=== PATIENT | male | born 1960 | race Caucasian/White ===

== ENCOUNTER 2019-05-24 02:30 | Inpatient (IN) | payer MEDICARE, MEDICAID ==
--- NOTE | 2019-05-24 03:05 | ER Document Report ---
ED Cardiac - General Stated Complaint: SHORTNESS OF BREATH Time Seen by Provider: 05/24/19 02:50 Primary Care Provider: PASCUAL MCCORMACK DO [NO LOCAL MD] - Follow up as needed Notes: 59-year-old male brought in emergency tract by EMS for tachycardia and shortness of breath. Patient called EMS when he was having shortness of breath. EMS arrived and found patient with a heart rate in the 200s with what appeared to be a narrow complex rhythm. They did have an IV and administered adenosine but that did not work. Patient began to have hypotension so the decision was made to do electrocardioversion. Patient received 2 electrical shocks but still no decrease in heart rate. The IV was subsequently lost. Patient was seen immediately on arrival. Patient was alert and in no acute distress. Heart rate of 210. Immediate IV access was obtained. - HPI Patient complains to provider of: Palpitations, Shortness of breath Was the onset of pain: Sudden Is the pain a: New problem Quality of pain: None Severity now: Severe Severity at worst: Severe Pain level currently: Denies Associated symptoms: Shortness of breath, Weakness - Related Data Allergies/Adverse Reactions: No Known Allergies Allergy (Verified 06/28/13 17:52) Past Medical History - General Information source: Patient - Social History Smoking Status: Current Every Day Smoker Cigarette use (# per day): Yes Frequency of alcohol use: None Drug Abuse: None Family History: Reviewed & Not Pertinent - Past Medical History Cardiac Medical History: Reports: Hx Congestive Heart Failure, Hx Hypertension Pulmonary Medical History: Reports: Hx COPD - Immunizations Hx Diphtheria, Pertussis, Tetanus Vaccination: No Review of Systems - Review of Systems Notes: Constitutional: denies: Chills, Diaphoresis, Fever, Malaise, Weakness EENT: denies: Eye discharge, Blurred vision, Tearing, Double vision, Nose congestion, Nose discharge, Throat swelling, Mouth pain Cardiovascular: denies: Palpitations, Heart racing, Orthopnea, +Dyspnea, -Chest pain Respiratory: denies: Cough, Hurts to breathe, Wheezing, +Shortness of breath Gastrointestinal: denies: Abdominal pain, Diarrhea, Nausea, Vomiting, Black stools, bright red blood in stool Genitourinary: denies: Burning, Dysuria, Discharge, Frequency, Flank pain, Hematuria Musculoskeletal: denies: Joint pain, Joint swelling, Muscle pain, Muscle stiffness, back pain Hematologic/Lymphatic: denies: Anemia, Easy bleeding, Easy bruising, Blood clots Neurological/Psychological: denies: Confusion, Dementia, Depression, Loss of consciousness Skin: No lesions, no masses, no skin breakdown, no abscesses Physical Exam - Vital signs Vitals: Resp Pulse Ox 27 H 94 05/24/19 02:34 05/24/19 02:34 Interpretation: Tachycardic, Tachypneic - General General appearance: Appears well, Alert - HEENT Head: Normocephalic, Atraumatic Eyes: Normal Pupils: PERRL - Respiratory Respiratory status: No respiratory distress Chest status: Nontender Breath sounds: Normal Chest palpation: Normal - Cardiovascular Rhythm: Tachycardia Heart sounds: Normal auscultation Murmur: No - Abdominal Inspection: Normal Distension: No distension Bowel sounds: Normal Tenderness: Nontender Organomegaly: No organomegaly - Back Back: Normal, Nontender - Extremities General upper extremity: Normal inspection, Nontender, Normal color, Normal ROM, Normal temperature General lower extremity: Normal inspection, Nontender, Edema - Moderate amount of edema bilateral lower extremities with venous stasis present and skin changes consistent with chronic venous stasis., Normal color, Normal ROM, Normal temperature. No: Vidal's sign - Neurological Neuro grossly intact: Yes Cognition: Normal Orientation: AAOx4 Breanne Coma Scale Eye Opening: Spontaneous Breanne Coma Scale Verbal: Oriented Hampton Coma Scale Motor: Obeys Commands Hampton Coma Scale Total: 15 Speech: Normal Motor strength normal: LUE, RUE, LLE, RLE Sensory: Normal - Psychological Associated symptoms: Normal affect, Normal mood - Skin Skin Temperature: Warm Skin Moisture: Dry Skin Color: Normal, Other - Venous stasis Course - Re-evaluation Re-evalutation: 05/24/19 04:05 Patient was cardioverted with Cardizem. Heart rate still elevated. Maxed out on the Cardizem so we will try some digoxin to lower the heart rate. Patient will need to be admitted. Consulted hospitalist, Dr. Holloway who will admit at this time. 05/24/19 04:05 Laboratory 05/24/19 05/24/19 05/24/19 02:54 03:00 03:00 WBC 10.8 H RBC 5.52 Hgb 16.3 Hct 48.1 MCV 87 MCH 29.5 MCHC 33.9 RDW 15.0 H Plt Count 283 Seg Neutrophils % 62.6 Lymphocytes % 28.1 Monocytes % 7.2 Eosinophils % 1.0 Basophils % 1.1 Absolute Neutrophils 6.8 Absolute Lymphocytes 3.0 Absolute Monocytes 0.8 Absolute Eosinophils 0.1 Absolute Basophils 0.1 Sodium 135.5 L Potassium 4.9 Chloride 101 Carbon Dioxide 21 L Anion Gap 14 BUN 22 H Creatinine 0.70 Est GFR ( Amer) > 60 Est GFR (Non-Af Amer) > 60 Glucose 227 H POC Glucose 198 H Calcium 9.9 Total Bilirubin 0.7 Direct Bilirubin 0.5 H Neonat Total Bilirubin Not Reportable Neonat Direct Bilirubin Not Reportable Neonat Indirect Bili Not Reportable AST 17 ALT 16 L Alkaline Phosphatase 129 H Creatine Kinase 41 L CK-MB (CK-2) Troponin I NT-Pro-B Natriuret Pep Total Protein 7.6 Albumin 4.0 05/24/19 03:00 WBC RBC Hgb Hct MCV MCH MCHC RDW Plt Count Seg Neutrophils % Lymphocytes % Monocytes % Eosinophils % Basophils % Absolute Neutrophils Absolute Lymphocytes Absolute Monocytes Absolute Eosinophils Absolute Basophils Sodium Potassium Chloride Carbon Dioxide Anion Gap BUN Creatinine Est GFR ( Amer) Est GFR (Non-Af Amer) Glucose POC Glucose Calcium Total Bilirubin Direct Bilirubin Neonat Total Bilirubin Neonat Direct Bilirubin Neonat Indirect Bili AST ALT Alkaline Phosphatase Creatine Kinase CK-MB (CK-2) 1.03 Troponin I < 0.012 NT-Pro-B Natriuret Pep 2100 H Total Protein Albumin - Vital Signs Vital signs: Temp Pulse Resp BP Pulse Ox 98.0 F 19 141/81 H 94 05/24/19 02:56 05/24/19 03:00 05/24/19 02:42 05/24/19 03:33 - Laboratory Result Diagrams: 05/24/19 03:00 05/24/19 03:00 Laboratory results interpreted by me: 05/24/19 05/24/19 05/24/19 02:54 03:00 03:00 WBC 10.8 H RDW 15.0 H Sodium 135.5 L Carbon Dioxide 21 L BUN 22 H Glucose 227 H POC Glucose 198 H Direct Bilirubin 0.5 H ALT 16 L Alkaline Phosphatase 129 H Creatine Kinase 41 L NT-Pro-B Natriuret Pep 05/24/19 03:00 WBC RDW Sodium Carbon Dioxide BUN Glucose POC Glucose Direct Bilirubin ALT Alkaline Phosphatase Creatine Kinase NT-Pro-B Natriuret Pep 2100 H Critical Care Note - Critical Care Note Total time excluding time spent on procedures (mins): 35 Comments: Extreme tachycardia, pushing of medications, bedside assessment, Discharge - Discharge Clinical Impression: Atrial fibrillation with rapid ventricular response Condition: Fair Disposition: ADMITTED INPATIENT Admitting Provider: Jewel (Hospitalist) Unit Admitted: IMCU Referrals: PASCUAL MCCORMACK DO [NO LOCAL MD] - Follow up as needed
[2019-05-24] MEDS ORDERED: ASPIRIN 81 MG TABLET, CHEWABLE PO ONE (03:12)
[2019-05-24] MEDS ORDERED: DILTIAZEM HCL INJ 25 MG/5 ML VIAL IV ONE (03:14)
[2019-05-24] MEDS ORDERED: DILTIAZEM HCL/D5W 125 MG/125 ML RTUINJ IV PRN ×2 (03:14→08:12)
[2019-05-24 03:34] LABS: BLOOD UREA NITROGEN 22 mg/dL (7-20); CALCIUM 9.9 mg/dL (8.4-10.2); CARBON DIOXIDE 21 mmol/L (22-30); CHLORIDE 101 mmol/L (98-107); GLUCOSE 227 mg/dL (75-110); POTASSIUM 4.9 mmol/L (3.6-5.0); SODIUM 135.5 mmol/L (137-145)
[2019-05-24 03:35] LABS: ALANINE AMINOTRANSFERASE 16 U/L (21-72); ALKALINE PHOSPHATASE 129 U/L (38-126); ANION GAP 14 (5-19); ASPARTATE AMINO TRANSFERASE 17 U/L (17-59); BILIRUBIN,DIRECT 0.5 mg/dL (0.0-0.4); BILIRUBIN,TOTAL 0.7 mg/dL (0.2-1.3); CREATINE KINASE 41 U/L (55-170); TOTAL PROTEIN 7.6 g/dL (6.3-8.2)
[2019-05-24 03:47] LABS: CREATINE KINASE MB 1.03 ng/mL (<4.55); NT PRO BNP 2100 pg/mL (5-900); TROPONIN I < 0.012 ng/mL
[2019-05-24 03:48] LABS: ABSOLUTE BASOPHILS # (AUTO) 0.1 10^3/uL (0.0-0.2); ABSOLUTE EOSINOPHILS # (AUTO) 0.1 10^3/uL (0.0-0.6); ABSOLUTE MONOCYTES (AUTO) 0.8 10^3/uL (0.1-1.4); ABSOLUTE NEUT (AUTO) 6.8 10^3/uL (1.7-8.2); BASOPHILS % (AUTO) 1.1 % (0-2); HEMATOCRIT 48.1 % (37.9-51.0); HEMOGLOBIN 16.3 g/dL (13.5-17.0); LYMPHOCYTES % (AUTO) 28.1 % (13-45); MEAN CORPUSCULAR HEMOGLOBIN 29.5 pg (27.0-33.4); MEAN CORPUSCULAR HGB CONC 33.9 g/dL (32.0-36.0); MEAN CORPUSCULAR VOLUME 87 fl (80-97); MONOCYTES % (AUTO) 7.2 % (3-13); PLATELET COUNT 283 10^3/uL (150-450); RED BLOOD COUNT 5.52 10^6/uL (4.35-5.55); SEGMENTED NEUTROPHILS % (AUTO) 62.6 % (42-78); TOTAL CELLS COUNTED % (AUTO) 100 %; WHITE BLOOD COUNT 10.8 10^3/uL (4.0-10.5)
[2019-05-24] MEDS ORDERED: DIGOXIN INJ 0.5 MG/2 ML AMPULE IV ONE ×2 (04:02→16:09)
--- NOTE | 2019-05-24 04:23 | RADIOLOGY REPORT (SQ) ---
CLINICAL HISTORY: sob COMPARISON: None. TECHNIQUE: XR CHEST 1 VIEW 05/24/2019 3:13 AM CDT FINDINGS: Cardiac silhouette is normal in size. Lungs are clear without consolidation, atelectasis, mass or edema. There is no pleural effusion. There is no pneumothorax. There are no acute osseous findings. IMPRESSION: Clear lungs.
[2019-05-24] MEDS ORDERED: METOPROLOL TARTRATE PF/INJ 5 MG/5 ML SDV IV PRN (08:09)
[2019-05-24] MEDS ORDERED: DEXTROSE 50%-WATER 25 GM/50 ML DISP.SYRIN IV PRN ×2 (08:17)
[2019-05-24] MEDS ORDERED: GLUCAGON,HUMAN RECOMB 1 MG INJ IM PRN (08:17)
[2019-05-24] MEDS ORDERED: DEXTROSE 40% GEL 15 GM TUBE PO PRN ×2 (08:17)
[2019-05-24] MEDS ORDERED: MAG HYDROX/AL HYDROX/SIMETH SUSP 30 ML UDCUP PO PRN (08:20)
[2019-05-24] MEDS ORDERED: MAGNESIUM HYDROXIDE SUSP 30 ML UDCUP PO PRN (08:20)
[2019-05-24] MEDS ORDERED: ACETAMINOPHEN 325 MG TABLET PO PRN (08:20)
[2019-05-24] MEDS ORDERED: TEMAZEPAM 7.5 MG CAPSULE PO PRN (08:20)
[2019-05-24] MEDS ORDERED: IPRATROPIUM/ALBUTEROL 0.5-2.5 MG/3 ML AMPUL NEB PRN (08:20)
[2019-05-24] MEDS ORDERED: PROMETHAZINE HCL 25 MG TABLET PO PRN (08:20)
[2019-05-24] MEDS ORDERED: LEVALBUTEROL HCL NEB 1.25 MG/3 ML AMPUL NEB SCH (08:45)
[2019-05-24] MEDS: INSULIN REG, HUMAN 100 UNIT/ML 3 ML VIAL (PYX) SUBCUT SCH ×4 (09:19→22:30)
[2019-05-24] MEDS: FAMOTIDINE 20 MG TABLET PO SCH ×2 (09:22→22:33)
[2019-05-24] MEDS: DILTIAZEM HCL 180 MG CAPSULE.CR PO SCH (09:22)
[2019-05-24] MEDS: LOSARTAN POTASSIUM 25 MG TABLET PO SCH (09:22)
[2019-05-24] MEDS: FUROSEMIDE 40 MG TABLET PO SCH (09:22)
[2019-05-24] MEDS: NICOTINE 21 MG/24 HR PATCH.TD24 TD SCH (09:23)
[2019-05-24] MEDS ORDERED: FUROSEMIDE 20 MG TABLET PO SCH (10:00)
[2019-05-24] MEDS ORDERED: ENOXAPARIN SODIUM INJ 40 MG/0.4 ML DISP.SYRIN SUBCUT SCH (10:00)
[2019-05-24] MEDS ORDERED: METOPROLOL TARTRATE 50 MG TABLET PO SCH (10:00)
[2019-05-24 10:09] LABS: APPEARANCE,URINE CLEAR; BILIRUBIN,URINE NEGATIVE (NEGATIVE); COLOR,URINE AMBER; GLUCOSE, URINE NEGATIVE (NEGATIVE); KETONES,URINE TRACE mg/dL (NEGATIVE); LEUKOCYTE ESTERASE,URINE NEGATIVE (NEGATIVE); NITRITE,URINE NEGATIVE (NEGATIVE); PROTEIN,URINE NEGATIVE (NEGATIVE); URINE SPECIFIC GRAVITY 1.024
[2019-05-24] MEDS ORDERED: LEVALBUTEROL HCL NEB 1.25 MG/3 ML AMPUL NEB PRN (11:12)
[2019-05-24] MEDS: NYSTATIN TOPICAL POWDER 15 GM TP SCH ×2 (13:02→18:55)
[2019-05-24] MEDS: PANTOT AC/MIN OIL/PET HY-PHL OINT 50 GM TOP SCH ×2 (13:04→18:54)
--- NOTE | 2019-05-24 19:29 | ADVANCED CARE ---
- Diagnosis (1) Hypertension Diagnosis Current: Yes (2) Type 2 diabetes mellitus with obesity Diagnosis Current: Yes (3) Stasis dermatitis of both legs Diagnosis Current: Yes (4) Stasis dermatitis of right lower extremity with venous ulcer due to chronic peripheral venous hypertension Diagnosis Current: Yes (5) Stasis dermatitis of left lower extremity with venous ulcer due to chronic peripheral venous hypertension Diagnosis Current: Yes (6) COPD (chronic obstructive pulmonary disease) Diagnosis Current: Yes (7) Atrial fibrillation with rapid ventricular response Diagnosis Current: Yes Attendance: Discussion was held with the patient at the bedside Resuscitation Status: Full Code Discussion: We reviewed the decision regarding full code and DNR. I explained to the patient that at the time of an arrest we have no idea if the patient is going to survive her with the post arrest prognosis might be. I explained that his thoughts were consistent with many patients in that he would not want to be kept alive by heroic measures for an extended period but he would like attempts made at resuscitation. I took out the healthcare proxy form in the admissions packet. I showed him where he could designated decision maker since he has no children, his parents are and there are no siblings. He will review the document during this hospitalization and consider completing it. Care Planning Goals: To establish documentation and parameters regarding treatment in the event of a catastrophic illness Document(s) Completed: None at this time Time Spent: 20 minutes
--- NOTE | 2019-05-24 19:39 | PDOC H&P ---
History of Present Illness Admission Date/PCP: 05/24/19 04:24 SUSAN AKBAR DO Patient complains of: increasing SOB over the last 3-4 weeks History of Present Illness: WILL LUJAN is a 59 year old male with significant noncompliance. He has not seen a doctor in some time. He does not take any medications at this time. He reports that over the last 4 weeks he has been noticing increasing shortness of breath. Over time it took less and less exertion that resulted in significant shortness of breath with occasional lightheadedness and dizziness. He denies any chest pain or pressure. He would occasionally be diaphoretic and experience occasional mild nausea. The patient called EMS because of the worsening shortness of breath. On arrival EMS found his heart rate to be over 200. He was given adenosine with no response. Attempted synchronized cardioversion failed. In the emergency department he was given diltiazem and digoxin. He finally broke to sinus rhythm and remains on a diltiazem drip. He was referred to the hospital service for admission. Past Medical History Past Medical History: Reviewed old records. The patient does have a history of diabetes and significant noncompliance. Cardiac Medical History: Reports: Congestive Heart Failure, Hypertension Denies: Myocardial Infarction Pulmonary Medical History: Reports: Chronic Obstructive Pulmonary Disease (COPD) EENT Medical History: Denies: Ears, Nose, Throat Neurological Medical History: Denies: Hemorrhagic CVA, Ischemic CVA Endocrine Medical History: Reports: Diabetes Mellitus Type 2 Denies: Hypothyroidism Renal/ Medical History: Denies: Chronic Kidney Disease Malignancy Medical History: Reports: None GI Medical History: Reports: Gastroesophageal Reflux Disease Musculoskeltal Medical History: Denies: Arthritis, Fibromyalgia Skin Medical History: Reports: Other - Chronic lymphedema with stasis dermatitis Psychiatric Medical History: Reports: Tobacco Dependency Denies: Alcohol Dependency Traumatic Medical History: Reports: None Hematology: Reports: None Infectious Medical History: Reports: None Past Surgical History Past Surgical History: Reports: Tonsillectomy, Other - Hydrocele and gastric polyp Social History Information Source: Patient, [facility] Records Lives with: Alone Smoking Status: Current Every Day Smoker Cigars Per Day: 15 Frequency of Alcohol Use: None Hx Recreational Drug Use: Yes Drugs: Cocaine, Marijuana, Other Hx Prescription Drug Abuse: No - Advance Directive Resuscitation Status: Full Code Surrogate healthcare decision maker:: None designated at this time Family History Family History: CAD, DM, Malignancy, Other - Congestive heart failure, dementia Parental Family History Reviewed: Yes Children Family History Reviewed: NA Sibling(s) Family History Reviewed.: NA Medication/Allergy Home Medications: No Home Medications 05/24/19 Allergies/Adverse Reactions: No Known Allergies Allergy (Verified 06/28/13 17:52) Review of Systems Constitutional: PRESENT: fatigue, weakness, weight gain Eyes: ABSENT: visual disturbances Ears: ABSENT: hearing changes Nose, Mouth, and Throat: PRESENT: other - Poor dentition Cardiovascular: PRESENT: dyspnea on exertion, edema, orthropnea Respiratory: PRESENT: cough, dyspnea. ABSENT: sputum Gastrointestinal: PRESENT: constipation, diarrhea, heartburn, nausea. ABSENT: melena, vomiting Genitourinary: ABSENT: difficulty urinating, hematuria Musculoskeletal: PRESENT: back pain Integumentary: PRESENT: rash - Stasis dermatitis, wounds - Stasis ulcers. ABSENT: diaphoresis Neurological: ABSENT: abnormal speech, confusion, memory loss, numbness, tremor(s), weakness Psychiatric: ABSENT: anxiety, depression, hallucinations Endocrine: ABSENT: cold intolerance, heat intolerance, polydipsia, polyphagia, polyuria Hematologic/Lymphatic: ABSENT: easy bleeding, lymphadenopathy Allergic/Immunologic: ABSENT: seasonal rhinorrhea Physical Exam Vital Signs: Temp Pulse Resp BP Pulse Ox 98.9 F 91 20 151/99 H 100 05/24/19 04:49 05/24/19 07:00 05/24/19 06:27 05/24/19 06:27 05/24/19 06:27 Intake & Output 05/23/19 05/24/19 05/25/19 06:59 06:59 06:59 Intake Total 16 Balance 16 Weight 162 kg General appearance: PRESENT: cooperative, mild distress, morbidly obese, well-de veloped, other - Very poor hygiene Head exam: PRESENT: atraumatic, normocephalic Eye exam: PRESENT: conjunctival injection, conjunctiva pink, EOMI. ABSENT: scleral icterus Ear exam: PRESENT: normal external ear exam Mouth exam: PRESENT: dry mucosa, tongue midline Teeth exam: PRESENT: poor dentation Throat exam: ABSENT: post pharyngeal erythema, tonsillar erythema Neck exam: PRESENT: full ROM. ABSENT: carotid bruit, JVD - Very large neck. Difficult to assess., lymphadenopathy Respiratory exam: PRESENT: clear to auscultation collette - Anteriorly, decreased breath sounds - Due to body habitus, symmetrical, unlabored. ABSENT: accessory muscle use, rales, rhonchi, tachypnea, wheezes Cardiovascular exam: PRESENT: RRR, +S1, +S2. ABSENT: diastolic murmur, systolic murmur Pulses: PRESENT: normal radial pulses, normal dorsalis pedis pul GI/Abdominal exam: PRESENT: normal bowel sounds, soft, other. ABSENT: guarding - Protuberant abdomen, tenderness Rectal exam: PRESENT: deferred Gentrourinary exam: PRESENT: scrotal swelling - With slight erythema. ABSENT: indwelling catheter Extremities exam: PRESENT: pedal edema, other - Significant pigment deposition lower extremities. Chronic lymphedema with thickened skin. Bilateral leg ulcers. Musculoskeletal exam: PRESENT: other - Difficult to assess due to morbid obesit y. ABSENT: tenderness Neurological exam: PRESENT: alert, awake, oriented to person, oriented to place, oriented to time, oriented to situation, CN II-XII grossly intact. ABSENT: motor sensory deficit Psychiatric exam: PRESENT: appropriate affect, normal mood. ABSENT: agitated, anxious Focused psych exam: ABSENT: delusional, restlessness Skin exam: PRESENT: other - The patient has an ulcer on the bilateral mid calf area on each leg. Marked pigment deposition both legs. Thickened fibrotic skin changes bilaterally with keratin scaling.. ABSENT: erythema, intact, normal color Results Laboratory Results: 05/24/19 03:00 05/24/19 03:00 05/24/19 05/24/19 03:00 03:00 WBC 10.8 H RBC 5.52 Hgb 16.3 Hct 48.1 MCV 87 MCH 29.5 MCHC 33.9 RDW 15.0 H Plt Count 283 Seg Neutrophils % 62.6 Lymphocytes % 28.1 Monocytes % 7.2 Eosinophils % 1.0 Basophils % 1.1 Absolute Neutrophils 6.8 Absolute Lymphocytes 3.0 Absolute Monocytes 0.8 Absolute Eosinophils 0.1 Absolute Basophils 0.1 Sodium 135.5 L Potassium 4.9 Chloride 101 Carbon Dioxide 21 L Anion Gap 14 BUN 22 H Creatinine 0.70 Est GFR ( Amer) > 60 Est GFR (Non-Af Amer) > 60 Glucose 227 H Calcium 9.9 Total Bilirubin 0.7 AST 17 ALT 16 L Alkaline Phosphatase 129 H Total Protein 7.6 Albumin 4.0 05/24/19 05/24/19 05/24/19 03:00 03:00 07:45 Creatine Kinase 41 L CK-MB (CK-2) 1.03 Troponin I < 0.012 < 0.012 NT-Pro-B Natriuret Pep 2100 H Impressions: Chest X-Ray 05/24/19 03:13 IMPRESSION: Clear lungs. Assessment and Plan - Diagnosis (1) Atrial fibrillation with rapid ventricular response Is this a current diagnosis for this admission?: Yes Plan: 05/24/2019-when EMS arrived at patient's house his heart rate is greater than 200. Adenosine failed to convert and synchronized cardioversion was attempted x2. Unfortunately this failed. Upon arrival to the emergency department combination of diltiazem and digoxin was able to control the rate and convert him to sinus rhythm. He is currently in sinus rhythm. We will continue the diltiazem and digoxin. I will place him on therapeutic Lovenox and if we are unable to maintain sinus rhythm we will continue anticoagulation with an oral agent. (2) Hypertension Qualifiers: Hypertension type: essential hypertension Qualified Code(s): I10 - Essential (primary) hypertension Is this a current diagnosis for this admission?: Yes Plan: 05/24/2019-the patient will be on diltiazem, losartan and furosemide. These were medications he had been on in the past. We will adjust medications based on his blood pressure readings. (3) Type 2 diabetes mellitus with obesity Is this a current diagnosis for this admission?: Yes Plan: 05/24/2019-the patient reports that he may be diabetic. His glucose today is 227. In addition old records reflect diabetes. A hemoglobin A1c is ordered for tomorrow and he will be on a cardiac/controlled carbohydrate diet. For the time being fingersticks with meals and at bedtime and insulin sliding scale. (4) Stasis dermatitis of both legs Is this a current diagnosis for this admission?: Yes Plan: 05/24/2019-the patient has long-standing edema. He has developed what he calls alligator skin. He also has 2 ulcers. Will apply Aquaphor to both legs and effort to treat the keratin scaling. He will be on diuretic therapy to help reduce the edema. Long-term treatment would include compression wraps and dewayne ght loss. (5) Stasis dermatitis of right lower extremity with venous ulcer due to chronic peripheral venous hypertension Is this a current diagnosis for this admission?: Yes Plan: 05/24/2019-patient has an ulcer on the posterior lateral aspect of the right calf. We will clean daily and apply Allevyn dressings. Unfortunately ~com pression wraps are not available at this time. Leg elevation when possible. (6) Stasis dermatitis of left lower extremity with venous ulcer due to chronic peripheral venous hypertension Is this a current diagnosis for this admission?: Yes Plan: 05/24/2019-the left leg ulcer is posterior lateral on the calf as well. Same treatment plan as above. (7) COPD (chronic obstructive pulmonary disease) Qualifiers: COPD type: unspecified COPD Qualified Code(s): J44.9 - Chronic obstructive pulmonary disease, unspecified Is this a current diagnosis for this admission?: Yes Plan: 05/24/2019-the patient has underlying history of chronic obstructive pulmonary disease. It is not an acute exacerbation. We will have nebulizer treatments available if needed. Oxygen supplementation as needed also. We will try to keep saturations between 88 and 92%. - Time Time Spent with patient: 35 or more minutes Smoking Cessation Education: 3 to 10 minutes Medications reviewed and adjusted accordingly: Yes - Inpatient Certification Based on my medical assessment, after consideration of the patient's comorbidities, presenting symptoms, or acuity I expect that the services needed warrant INPATIENT care.: Yes I certify that my determination is in accordance with my understanding of Medicare's requirements for reasonable and necessary INPATIENT services [42 CFR 412.3e].: Yes Medical Necessity: Need Close Monitoring Due to Risk of Patient Decompensation, Need For Continuous Telemetry Monitoring, Need for Pain Control, Risk of Complication if Not Cared For in Hospital
[2019-05-24] MEDS: ENOXAPARIN SODIUM INJ 150 MG/1 ML DISP.SYRIN SUBCUT SCH (22:29)
[2019-05-24] MEDS: ASPIRIN 81 MG TABLET, ENT COATED PO SCH (22:30)
[2019-05-24] MEDS: DIGOXIN 0.125 MG TABLET PO SCH (22:31)
--- NOTE | 2019-05-24 22:39 | EKG REPORT ---
SEVERITY:- ABNORMAL ECG - SINUS TACHYCARDIA WITH IRREGULAR RATE [id number] RBBB AND LPFB : Confirmed by: Georgia Diane MD 24-May-2019 22:38:39
[2019-05-25 06:24] LABS: ABSOLUTE BASOPHILS # (AUTO) 0.1 10^3/uL (0.0-0.2); ABSOLUTE EOSINOPHILS # (AUTO) 0.2 10^3/uL (0.0-0.6); ABSOLUTE LYMPHOCYTES (AUTO) 1.9 10^3/uL (0.5-4.7); ABSOLUTE MONOCYTES (AUTO) 0.6 10^3/uL (0.1-1.4); ABSOLUTE NEUT (AUTO) 3.8 10^3/uL (1.7-8.2); BASOPHILS % (AUTO) 1.1 % (0-2); EOSINOPHILS % (AUTO) 2.8 % (0-6); HEMATOCRIT 42.2 % (37.9-51.0); LYMPHOCYTES % (AUTO) 28.8 % (13-45); MEAN CORPUSCULAR HEMOGLOBIN 29.2 pg (27.0-33.4); MEAN CORPUSCULAR HGB CONC 33.5 g/dL (32.0-36.0); MEAN CORPUSCULAR VOLUME 87 fl (80-97); PLATELET COUNT 219 10^3/uL (150-450); RED BLOOD COUNT 4.83 10^6/uL (4.35-5.55); SEGMENTED NEUTROPHILS % (AUTO) 58.3 % (42-78); TOTAL CELLS COUNTED % (AUTO) 100 %; WHITE BLOOD COUNT 6.5 10^3/uL (4.0-10.5)
[2019-05-25 06:26] LABS: HEMOGLOBIN 14.1 g/dL (13.5-17.0)
[2019-05-25 06:47] LABS: ANION GAP 5 (5-19); BLOOD UREA NITROGEN 12 mg/dL (7-20); CALCIUM 8.9 mg/dL (8.4-10.2); CARBON DIOXIDE 27 mmol/L (22-30); CHLORIDE 106 mmol/L (98-107); CHOLESTEROL 142.09 mg/dL (0-200); GLUCOSE 149 mg/dL (75-110); POTASSIUM 4.5 mmol/L (3.6-5.0); SODIUM 137.8 mmol/L (137-145); TRIGLYCERIDES 107 mg/dL (<150)
[2019-05-25 06:57] LABS: DIRECT LDL 100 mg/dL (<100)
[2019-05-25 07:02] LABS: FREE T3 4.01 pg/mL (2.77-5.27); FREE T4 (FREE THYROXINE) 1.26 ng/dL (0.78-2.19)
[2019-05-25 07:16] LABS: THYROID STIMULATING HORMONE 1.4 uIU/mL (0.47-4.68)
[2019-05-25 08:22] LABS: APPEARANCE,URINE CLEAR; BILIRUBIN,URINE NEGATIVE (NEGATIVE); COLOR,URINE YELLOW; GLUCOSE, URINE NEGATIVE (NEGATIVE); KETONES,URINE NEGATIVE (NEGATIVE); LEUKOCYTE ESTERASE,URINE NEGATIVE (NEGATIVE); NITRITE,URINE NEGATIVE (NEGATIVE); PROTEIN,URINE NEGATIVE (NEGATIVE)
[2019-05-25] MEDS: LOSARTAN POTASSIUM 25 MG TABLET PO SCH (09:41)
[2019-05-25] MEDS: DIGOXIN 0.125 MG TABLET PO SCH ×2 (09:41→21:29)
[2019-05-25] MEDS: FUROSEMIDE 40 MG TABLET PO SCH (09:42)
[2019-05-25] MEDS: FAMOTIDINE 20 MG TABLET PO SCH ×2 (09:42→21:29)
[2019-05-25] MEDS: DILTIAZEM HCL 180 MG CAPSULE.CR PO SCH (09:42)
[2019-05-25] MEDS: NICOTINE 21 MG/24 HR PATCH.TD24 TD SCH (09:43)
[2019-05-25] MEDS: PANTOT AC/MIN OIL/PET HY-PHL OINT 50 GM TOP SCH ×2 (09:48→18:51)
[2019-05-25] MEDS: NYSTATIN TOPICAL POWDER 15 GM TP SCH ×2 (09:48→18:51)
[2019-05-25] MEDS: INSULIN REG, HUMAN 100 UNIT/ML 3 ML VIAL (PYX) SUBCUT SCH ×4 (09:48→21:30)
[2019-05-25] MEDS: ENOXAPARIN SODIUM INJ 150 MG/1 ML DISP.SYRIN SUBCUT SCH ×2 (09:59→21:29)
--- NOTE | 2019-05-25 18:50 | PDOC PROGRESS REPORT ---
Subjective Progress Note for:: 05/25/19 Subjective:: No chest pain today. No shortness of breath. No palpitations. Is eating and drinking well. We had a long discussion about tobacco cessation, he is interested and proactively working towards quitting. He does not feel constipated, no diarrhea. He is urinating well. Not bleeding. Reason For Visit: AFIB Physical Exam Vital Signs: Temp Pulse Resp BP Pulse Ox 97.6 F 88 16 138/99 H 98 05/25/19 16:16 05/25/19 16:16 05/25/19 16:16 05/25/19 16:16 05/25/19 16:16 Intake & Output 05/24/19 05/25/19 05/26/19 06:59 06:59 06:59 Intake Total 16 1020 960 Output Total 2480 1500 Balance 16 -1460 -540 Weight 162 kg 160.1 kg General appearance: PRESENT: no acute distress, cooperative, morbidly obese Head exam: PRESENT: atraumatic, normocephalic Eye exam: ABSENT: conjunctival injection, scleral icterus Ear exam: PRESENT: normal external ear exam Mouth exam: PRESENT: moist, neck supple, tongue midline Neck exam: PRESENT: tracheostomy Respiratory exam: PRESENT: clear to auscultation collette, unlabored. ABSENT: rales, rhonchi Cardiovascular exam: PRESENT: RRR, systolic murmur Pulses: PRESENT: normal radial pulses GI/Abdominal exam: PRESENT: normal bowel sounds, soft. ABSENT: distended, firm, guarding Rectal exam: PRESENT: deferred Extremities exam: PRESENT: +2 edema Musculoskeletal exam: PRESENT: normal inspection Neurological exam: PRESENT: alert, awake, oriented to person, oriented to place, oriented to situation, CN II-XII grossly intact Psychiatric exam: PRESENT: appropriate affect. ABSENT: anxious Skin exam: PRESENT: dry, other - signif venuos stasis skin changes bilat distal legs Results Laboratory Results: 05/25/19 05:45 05/25/19 05:45 05/25/19 05/25/19 05/25/19 05:45 05:45 05:45 WBC 6.5 RBC 4.83 Hgb 14.1 D Hct 42.2 MCV 87 MCH 29.2 MCHC 33.5 RDW 15.0 H Plt Count 219 Seg Neutrophils % 58.3 Lymphocytes % 28.8 Monocytes % 9.0 Eosinophils % 2.8 Basophils % 1.1 Absolute Neutrophils 3.8 Absolute Lymphocytes 1.9 Absolute Monocytes 0.6 Absolute Eosinophils 0.2 Absolute Basophils 0.1 Sodium 137.8 Potassium 4.5 Chloride 106 Carbon Dioxide 27 Anion Gap 5 BUN 12 Creatinine 0.54 Est GFR ( Amer) > 60 Est GFR (Non-Af Amer) > 60 Glucose 149 H Calcium 8.9 Magnesium 2.0 Triglycerides 107 Cholesterol 142.09 LDL Cholesterol Direct 100 VLDL Cholesterol 21.0 HDL Cholesterol 27 L TSH 1.40 Free T4 1.26 Free T3 pg/mL 4.01 Urine Color Urine Appearance Urine pH Ur Specific [place] Urine Protein Urine Glucose (UA) Urine Ketones Urine Blood Urine Nitrite Ur Leukocyte Esterase Urine WBC (Auto) Urine RBC (Auto) 05/25/19 06:31 WBC RBC Hgb Hct MCV MCH MCHC RDW Plt Count Seg Neutrophils % Lymphocytes % Monocytes % Eosinophils % Basophils % Absolute Neutrophils Absolute Lymphocytes Absolute Monocytes Absolute Eosinophils Absolute Basophils Sodium Potassium Chloride Carbon Dioxide Anion Gap BUN Creatinine Est GFR ( Amer) Est GFR (Non-Af Amer) Glucose Calcium Magnesium Triglycerides Cholesterol LDL Cholesterol Direct VLDL Cholesterol HDL Cholesterol TSH Free T4 Free T3 pg/mL Urine Color YELLOW Urine Appearance CLEAR Urine pH 5.0 Ur Specific [place] 1.010 Urine Protein NEGATIVE Urine Glucose (UA) NEGATIVE Urine Ketones NEGATIVE Urine Blood NEGATIVE Urine Nitrite NEGATIVE Ur Leukocyte Esterase NEGATIVE Urine WBC (Auto) 1 Urine RBC (Auto) 0 05/24/19 05/24/19 05/24/19 03:00 03:00 07:45 Creatine Kinase 41 L CK-MB (CK-2) 1.03 Troponin I < 0.012 < 0.012 NT-Pro-B Natriuret Pep 2100 H 05/25/19 05:45 Creatine Kinase CK-MB (CK-2) Troponin I NT-Pro-B Natriuret Pep 487 Impressions: Chest X-Ray 05/24/19 03:13 IMPRESSION: Clear lungs. Assessment and Plan - Diagnosis (1) Atrial fibrillation with rapid ventricular response Is this a current diagnosis for this admission?: Yes Plan: 05/24/2019-when EMS arrived at patient's house his heart rate is greater than 200. Adenosine failed to convert and synchronized cardioversion was attempted x2. Unfortunately this failed. Upon arrival to the emergency department combination of diltiazem and digoxin was able to control the rate and convert him to sinus rhythm. He is currently in sinus rhythm. We will continue the diltiazem and digoxin. I will place him on therapeutic Lovenox and if we are unable to maintain sinus rhythm we will continue anticoagulation with an oral agent. 05/25/2019is feeling significantly better today. He is breathing well. No chest pain. No bleeding. No palpitations. No stasis. No medication changes made today. We will continue to observe overnight given severity of presenting issues. (2) Hypertension Qualifiers: Hypertension type: essential hypertension Qualified Code(s): I10 - Essential (primary) hypertension Is this a current diagnosis for this admission?: Yes Plan: 05/24/2019-the patient will be on diltiazem, losartan and furosemide. These were medications he had been on in the past. We will adjust medications based on his blood pressure readings. 05/25/19-pressure well controlled today. No medication changes being made. (3) Stasis dermatitis of both legs Is this a current diagnosis for this admission?: Yes Plan: This patient has had edema for many years. He has stasis dermatitis. We will continue with Aquaphor to both legs for the scaling. Continue with diuresis as well. Patient is interested in weight loss and we discussed nahum with that today. (4) Stasis dermatitis of left lower extremity with venous ulcer due to chronic peripheral venous hypertension Is this a current diagnosis for this admission?: Yes Plan: Patient was admitted with a venous ulcer related to his peripheral venous hypertension. It is dressed with Allevyn daily and we will monitor it. No compression wraps available at this hospital. (5) Stasis dermatitis of right lower extremity with venous ulcer due to chronic peripheral venous hypertension Is this a current diagnosis for this admission?: Yes Plan: Patient has a stasis ulcer on the right calf as well. Please see treatment for left ulcer as it is the same. (6) COPD (chronic obstructive pulmonary disease) Qualifiers: COPD type: unspecified COPD Qualified Code(s): J44.9 - Chronic obstructive pulmonary disease, unspecified Is this a current diagnosis for this admission?: Yes Plan: Patient COPD is stable. We will continue with duo nebs and monitor oxygen saturation. He is a chronic tobacco user. (7) Type 2 diabetes mellitus with obesity Is this a current diagnosis for this admission?: Yes (8) Tobacco use disorder Is this a current diagnosis for this admission?: Yes Plan: For 6 minutes patient and I discussed tobacco cessation. He has reduced his tobacco smoking by about one half because he is concerned about his dog's health. I encouraged him to speak with his primary care provider in order to continue to decrease the amount of tobacco he uses. We also talked about using the time outside smoking to possibly start walking a little bit. - Time Time Spent with patient: 35 or more minutes Smoking Cessation Education: 3 to 10 minutes - Inpatient Certification Based on my medical assessment, after consideration of the patient's comorbidities, presenting symptoms, or acuity I expect that the services needed warrant INPATIENT care.: Yes I certify that my determination is in accordance with my understanding of Medicare's requirements for reasonable and necessary INPATIENT services [42 CFR 412.3e].: Yes Medical Necessity: Significant Comorbidiites Make Outpatient Treatment Too Risky, Need Close Monitoring Due to Risk of Patient Decompensation
[2019-05-25] MEDS: ASPIRIN 81 MG TABLET, ENT COATED PO SCH (21:29)
[2019-05-26] MEDS: INSULIN REG, HUMAN 100 UNIT/ML 3 ML VIAL (PYX) SUBCUT SCH ×4 (08:03→22:05)
[2019-05-26 08:57] LABS: ANION GAP 6 (5-19); BLOOD UREA NITROGEN 11 mg/dL (7-20); CALCIUM 9.3 mg/dL (8.4-10.2); CARBON DIOXIDE 27 mmol/L (22-30); CHLORIDE 104 mmol/L (98-107); GLUCOSE 132 mg/dL (75-110); POTASSIUM 4.6 mmol/L (3.6-5.0); SODIUM 137.4 mmol/L (137-145)
[2019-05-26] MEDS: DIGOXIN 0.125 MG TABLET PO SCH ×2 (09:32→22:04)
[2019-05-26] MEDS: DILTIAZEM HCL 180 MG CAPSULE.CR PO SCH (09:32)
[2019-05-26] MEDS: LOSARTAN POTASSIUM 25 MG TABLET PO SCH (09:33)
[2019-05-26] MEDS: FUROSEMIDE 40 MG TABLET PO SCH (09:33)
[2019-05-26] MEDS: FAMOTIDINE 20 MG TABLET PO SCH ×2 (09:33→22:03)
[2019-05-26] MEDS: NICOTINE 21 MG/24 HR PATCH.TD24 TD SCH (09:34)
[2019-05-26] MEDS: NYSTATIN TOPICAL POWDER 15 GM TP SCH ×2 (09:34→17:10)
[2019-05-26] MEDS: PANTOT AC/MIN OIL/PET HY-PHL OINT 50 GM TOP SCH ×2 (09:34→17:10)
[2019-05-26] MEDS: ENOXAPARIN SODIUM INJ 150 MG/1 ML DISP.SYRIN SUBCUT SCH ×2 (09:45→22:04)
--- NOTE | 2019-05-26 12:56 | PDOC PROGRESS REPORT ---
Subjective Progress Note for:: 05/26/19 Subjective:: Pt feeling better overall, no CP or difficulty breathing. No palpitations. No constipation or diarrhea, no N/V. Feeling very weak however and walking to bathroom while holding on to unstable things in the room, despite that PT has safe he is not safe for out of bed status. Reason For Visit: AFIB Physical Exam Vital Signs: Temp Pulse Resp BP Pulse Ox 97.6 F 78 20 159/88 H 96 05/26/19 11:54 05/26/19 11:54 05/26/19 11:54 05/26/19 11:54 05/26/19 11:54 Intake & Output 05/25/19 05/26/19 05/27/19 06:59 06:59 06:59 Intake Total 1020 1650 240 Output Total 2480 2800 700 Balance -1460 -1150 -460 Weight 160.1 kg 155.4 kg General appearance: PRESENT: no acute distress, cooperative, morbidly obese Head exam: PRESENT: atraumatic, normocephalic Eye exam: PRESENT: EOMI. ABSENT: conjunctival injection, scleral icterus Ear exam: PRESENT: normal external ear exam Mouth exam: PRESENT: moist, tongue midline Neck exam: ABSENT: tracheostomy Respiratory exam: PRESENT: prolonged expiratory phas, unlabored. ABSENT: rales, rhonchi, wheezes Cardiovascular exam: PRESENT: RRR. ABSENT: systolic murmur Pulses: PRESENT: normal radial pulses Vascular exam: PRESENT: normal capillary refill GI/Abdominal exam: PRESENT: normal bowel sounds, soft. ABSENT: distended, tenderness Extremities exam: PRESENT: pedal edema Musculoskeletal exam: PRESENT: tenderness. ABSENT: full ROM, normal inspection Neurological exam: PRESENT: alert, awake, oriented to person, oriented to place, oriented to situation, CN II-XII grossly intact. ABSENT: normal gait Psychiatric exam: PRESENT: appropriate affect. ABSENT: anxious Focused psych exam: ABSENT: restlessness Skin exam: PRESENT: other - thick scaling skin distal legs, better with topicals. Has the bilat calf open wounds, not worse. Results Laboratory Results: 05/25/19 05:45 05/26/19 08:11 05/26/19 08:11 Sodium 137.4 Potassium 4.6 Chloride 104 Carbon Dioxide 27 Anion Gap 6 BUN 11 Creatinine 0.58 Est GFR ( Amer) > 60 Est GFR (Non-Af Amer) > 60 Glucose 132 H Calcium 9.3 Magnesium 2.0 05/24/19 05/24/19 05/24/19 03:00 03:00 07:45 Creatine Kinase 41 L CK-MB (CK-2) 1.03 Troponin I < 0.012 < 0.012 NT-Pro-B Natriuret Pep 2100 H 05/25/19 05:45 Creatine Kinase CK-MB (CK-2) Troponin I NT-Pro-B Natriuret Pep 487 Impressions: Chest X-Ray 05/24/19 03:13 IMPRESSION: Clear lungs. Assessment and Plan - Diagnosis (1) Atrial fibrillation with rapid ventricular response Is this a current diagnosis for this admission?: Yes Plan: mostlyin SR wtih controlled rate. BP holding in acceptable range. Will make no med changes today. Will cont to monitor on tele for possible DC tomorrow. Cont lovenox and pt states he will not take it as out pt, after our risk/benefit discusison on anticoagulation in setting of AFib. It may not be indicated on DC. (2) Hypertension Qualifiers: Hypertension type: essential hypertension Qualified Code(s): I10 - Essential (primary) hypertension Is this a current diagnosis for this admission?: Yes Plan: mostly well controlled, may need to uptitration oif losartan if BP remains high. (3) Stasis dermatitis of both legs Is this a current diagnosis for this admission?: Yes Plan: doing well with cleaning and dressing, no cellulitis, will need out pt wound care (4) Stasis dermatitis of left lower extremity with venous ulcer due to chronic peripheral venous hypertension Is this a current diagnosis for this admission?: Yes Plan: LOOK BETTER WITH TOPICAL EMOLLIANTS, CONTINUE THESE ON DC (5) Stasis dermatitis of right lower extremity with venous ulcer due to chronic peripheral venous hypertension Is this a current diagnosis for this admission?: Yes Plan: doing well with cleaning and dressing, no cellulitis, will need out pt wound care (home vs out pt depending on PT eval) (6) COPD (chronic obstructive pulmonary disease) Qualifiers: COPD type: unspecified COPD Qualified Code(s): J44.9 - Chronic obstructive pulmonary disease, unspecified Is this a current diagnosis for this admission?: Yes Plan: stable, on changes made to meds today, no wheezing (7) Type 2 diabetes mellitus with obesity Is this a current diagnosis for this admission?: Yes Plan: controlled, no changes. continue with diabetic diet. will order diabetic education. (8) Tobacco use disorder Is this a current diagnosis for this admission?: Yes Plan: cont patch, consider DC with patch if he is willing to stop, I recommended he talk to his PCP about cessation (9) Weakness Is this a current diagnosis for this admission?: Yes Plan: PT has evaluated him as not safe out of bed independently. PT eval today or tomorrow pending so we can decide upon rehab needs. I have discussed this with DC corporate event planner. He is very independent and likely would not be willing to go in patient. He has a small dog at home too. - Time Time Spent with patient: 25-34 minutes Anticipated discharge: Home with Homehealth - Inpatient Certification Based on my medical assessment, after consideration of the patient's comorbidities, presenting symptoms, or acuity I expect that the services needed warrant INPATIENT care.: Yes I certify that my determination is in accordance with my understanding of Medicare's requirements for reasonable and necessary INPATIENT services [42 CFR 412.3e].: Yes Medical Necessity: Need Close Monitoring Due to Risk of Patient Decompensation, Risk of Complication if Not Cared For in Hospital
[2019-05-26] MEDS: ASPIRIN 81 MG TABLET, ENT COATED PO SCH (22:03)
[2019-05-27 07:06] LABS: HEMATOCRIT 42.1 % (37.9-51.0); HEMOGLOBIN 14.4 g/dL (13.5-17.0); MEAN CORPUSCULAR HEMOGLOBIN 29.7 pg (27.0-33.4); MEAN CORPUSCULAR HGB CONC 34.3 g/dL (32.0-36.0); MEAN CORPUSCULAR VOLUME 87 fl (80-97); PLATELET COUNT 216 10^3/uL (150-450); RED BLOOD COUNT 4.86 10^6/uL (4.35-5.55); RED CELL DISTRIBUTION WIDTH 14.8 % (11.5-14.0); WHITE BLOOD COUNT 5.6 10^3/uL (4.0-10.5)
[2019-05-27] MEDS: INSULIN REG, HUMAN 100 UNIT/ML 3 ML VIAL (PYX) SUBCUT SCH ×2 (08:21→12:06)
[2019-05-27] MEDS: FUROSEMIDE 40 MG TABLET PO SCH (09:55)
[2019-05-27] MEDS: LOSARTAN POTASSIUM 25 MG TABLET PO SCH (09:55)
[2019-05-27] MEDS: DILTIAZEM HCL 180 MG CAPSULE.CR PO SCH (09:55)
[2019-05-27] MEDS: DIGOXIN 0.125 MG TABLET PO SCH (09:55)
[2019-05-27] MEDS: ENOXAPARIN SODIUM INJ 150 MG/1 ML DISP.SYRIN SUBCUT SCH (09:56)
[2019-05-27] MEDS: FAMOTIDINE 20 MG TABLET PO SCH (09:56)
[2019-05-27] MEDS: NICOTINE 21 MG/24 HR PATCH.TD24 TD SCH (09:56)
[2019-05-27] MEDS: NYSTATIN TOPICAL POWDER 15 GM TP SCH (09:59)
[2019-05-27] MEDS: PANTOT AC/MIN OIL/PET HY-PHL OINT 50 GM TOP SCH (09:59)
[2019-05-27 13:04] VITALS: BP 150/84
--- NOTE | 2019-05-28 13:36 | Pulmonary Function Test ---
Pulmonary Function Test Date of Procedure:: 05/24/19 INDICATION:: Dyspnea Referring Provider: Dr. Miguel Ghosh Insurance Office Manager: Kay Brooke, REVIEW TRAINER, SUPERVISOR COREMAK[employer] Impression: Spirometry not interpretable as per ATS standards
--- NOTE | 2019-05-28 18:52 | EKG REPORT ---
SEVERITY:- ABNORMAL ECG - WIDE COMPLEX TACHYCARDIA RIGHT BUNDLE BRANCH BLOCK : Confirmed by: Mri Riojas MD 28-May-2019 18:52:17
--- NOTE | 2019-05-28 21:32 | PDOC DISCHARGE SUMMARY ---
General - Admit/Disc Date/PCP Admission Date/Primary Care Provider: 05/24/19 04:24 SUSAN AKBAR, Discharge Date: 05/27/19 - Discharge Diagnosis (1) Atrial fibrillation with rapid ventricular response Is this a current diagnosis for this admission?: Yes Summary: Resolved. Patient is now rate controlled in NSR. He was initially placed on a diltiazem drip; have transitioned to p.o. diltiazem and digoxin at discharge. Discussed recommendations for chronic anticoagulation; patient adamantly declines. He is agreeable to continuing daily aspirin therapy. Patient is advised to see the importance of smoking cessation and decreasing alcohol and caffeine intake. (2) COPD (chronic obstructive pulmonary disease) Is this a current diagnosis for this admission?: Yes Summary: Stable and without exacerbation. Smoking cessation strongly encouraged. (3) Hypertension Is this a current diagnosis for this admission?: Yes Summary: Improved blood pressure. Patient is advised to continue diltiazem, digoxin, Losartan, and furosemide. Lifestyle modification and dietary discretion is encouraged. (4) Stasis dermatitis of both legs Is this a current diagnosis for this admission?: Yes Summary: Improved with twice daily emollient creams. Recommend increase attention to daily hygiene. Home health nursing and aide services have been ordered. (5) Stasis dermatitis of left lower extremity with venous ulcer due to chronic peripheral venous hypertension Is this a current diagnosis for this admission?: Yes Summary: As above. (6) Stasis dermatitis of right lower extremity with venous ulcer due to chronic peripheral venous hypertension Is this a current diagnosis for this admission?: Yes Summary: As above. (7) Tobacco use disorder Is this a current diagnosis for this admission?: Yes Summary: Smoking cessation strongly encouraged. Patient is provided a prescription for NicoDerm patches. (8) Weakness Is this a current diagnosis for this admission?: Yes Summary: Patient complains of generalized weakness. He is ambulatory with frontwheel walker and minimal assistance. Adamantly declines recommendations for short-term rehab. He is agreeable to home health services and physical therapy. This is been arranged for follow-up post discharge. - Additional Information Resuscitation Status: Full Code Discharge Diet: Cardiac Discharge Activity: Activity As Tolerated, Balance Activity w/Rest, Slowly Increase Activity, Supervised Activity, Weigh Daily Prescriptions: Aspirin [Ecotrin 81 mg EC Tablet] 81 mg PO QHS #90 tabec Digoxin [Lanoxin 0.125 mg Tablet] 0.125 mg PO Q12 #60 tablet Diltiazem HCl [Cardizem Cd 180 mg Capsule] 180 mg PO DAILY #30 capsule.cr Famotidine [Pepcid 20 mg Tablet] 20 mg PO Q12 #30 tablet Furosemide [Lasix 40 mg Tablet] 40 mg PO DAILY #30 tablet Losartan Potassium [Cozaar 25 mg Tablet] 25 mg PO DAILY #30 tablet Nicotine [Nicoderm 21 mg/24 Hr Transderm Patch] 1 each TD DAILY #30 patch.td24 Nystatin [Mycostatin Topical Powder 15 gm] 1 applic TP BID #1 bottle Pantot AC/Min Oil/Pet Hy-Phl [Aquaphor W-Vilma Heal Oint 50 gm] 1 applic TOP BID #1 tube Home Medications: Acetaminophen [Tylenol 325 mg Tablet] 650 mg PO Q4HP PRN tablet 05/27/19 Aspirin [Ecotrin 81 mg EC Tablet] 81 mg PO QHS #90 tabec 05/27/19 Digoxin [Lanoxin 0.125 mg Tablet] 0.125 mg PO Q12 #60 tablet 05/27/19 Diltiazem HCl [Cardizem Cd 180 mg Capsule] 180 mg PO DAILY #30 capsule.cr 05/27/19 Famotidine [Pepcid 20 mg Tablet] 20 mg PO Q12 #30 tablet 05/27/19 Furosemide [Lasix 40 mg Tablet] 40 mg PO DAILY #30 tablet 05/27/19 Losartan Potassium [Cozaar 25 mg Tablet] 25 mg PO DAILY #30 tablet 05/27/19 Nicotine [Nicoderm 21 mg/24 Hr Transderm Patch] 1 each TD DAILY #30 patch.td24 05/27/19 Nystatin [Mycostatin Topical Powder 15 gm] 1 applic TP BID #1 bottle 05/27/19 Pantot AC/Min Oil/Pet Hy-Phl [Aquaphor W-Vilma Heal Oint 50 gm] 1 applic TOP BID #1 tube 05/27/19 History of Present Illness History of Present Illness: Per H&P by Dr. Ghosh: WILL LUJAN is a 59 year old male with significant noncompliance. He has not seen a doctor in some time. He does not take any medications at this time. He reports that over the last 4 weeks he has been noticing increasing shortness of breath. Over time it took less and less exertion that resulted in significant shortness of breath with occasional lightheadedness and dizziness. He denies any chest pain or pressure. He would occasionally be diaphoretic and experience occasional mild nausea. The patient called EMS because of the worsening shortness of breath. On arrival EMS found his heart rate to be over 200. He was given adenosine with no response. Attemp velma synchronized cardioversion failed. In the emergency department he was given diltiazem and digoxin. He finally broke to sinus rhythm and remains on a diltiazem drip. He was referred to the hospital service for admission. Physical Exam Vital Signs: Temp Pulse Resp BP Pulse Ox 97.8 F 88 20 150/84 H 93 05/27/19 11:56 05/27/19 11:56 05/27/19 11:56 05/27/19 11:52 05/27/19 11:56 Intake & Output 05/27/19 05/28/19 05/29/19 06:59 06:59 06:59 Intake Total 870 740 Output Total 3775 500 Balance -2905 240 Weight 151.8 kg General appearance: PRESENT: no acute distress, disheveled, morbidly obese, well-developed Head exam: PRESENT: atraumatic, normocephalic Eye exam: PRESENT: conjunctiva pink, EOMI, PERRLA. ABSENT: scleral icterus Mouth exam: PRESENT: moist, tongue midline Neck exam: ABSENT: carotid bruit, JVD, lymphadenopathy, thyromegaly Respiratory exam: PRESENT: clear to auscultation collette, prolonged expiratory phas, symmetrical, unlabored. ABSENT: rales, rhonchi, wheezes Cardiovascular exam: PRESENT: RRR. ABSENT: diastolic murmur, rubs, systolic murmur Pulses: PRESENT: normal dorsalis pedis pul Vascular exam: PRESENT: normal capillary refill GI/Abdominal exam: PRESENT: normal bowel sounds, soft. ABSENT: distended, guar ding, mass, organolmegaly, rebound, tenderness Rectal exam: PRESENT: deferred Extremities exam: PRESENT: full ROM, pedal edema. ABSENT: calf tenderness, clubbing Neurological exam: PRESENT: alert, awake, oriented to person, oriented to place, oriented to time, oriented to situation, CN II-XII grossly intact. ABSENT: motor sensory deficit Psychiatric exam: PRESENT: appropriate affect, normal mood. ABSENT: homicidal ideation, suicidal ideation Skin exam: PRESENT: dry, warm, other - chronic venous stasis changes BLE. ABSENT: cyanosis, rash Results Laboratory Results: 05/27/19 06:20 05/26/19 08:11 05/24/19 05/24/19 05/24/19 03:00 03:00 07:45 Creatine Kinase 41 L CK-MB (CK-2) 1.03 Troponin I < 0.012 < 0.012 NT-Pro-B Natriuret Pep 2100 H 05/25/19 05:45 Creatine Kinase CK-MB (CK-2) Troponin I NT-Pro-B Natriuret Pep 487 Impressions: Chest X-Ray 05/24/19 03:13 IMPRESSION: Clear lungs. Qualifiers - * PATIENT BEING DISCHARGED WITH ANY OF THE FOLLOWING DIAGNOSIS: No Acute Heart Failure - Is this a Heart Failure Patient?: No Plan Discharge Plan: Patient is discharged home with home health services. Follow up with primary care provider within 1 week. Take medications as prescribed. Eat a low sodium diet. Weigh daily and report any weight gain >2 lbs overnight to provider. STOP smoking. Return to the emergency department as needed for concerning symptoms.
== END 2019-05-27 14:23 | disposition home health service (06) | DRG 309 ==
LOC: ER 02:30 → EH 04:24 → 3N 06:18
PROVIDERS: ADMIT Hospitalist; ATTEND Emergency Medicine
DX: I48.91 Unspecified atrial fibrillation (principal); L97.229 Non-pressure chronic ulcer of left calf with unspecified severity; L97.219 Non-pressure chronic ulcer of right calf with unspecified severity; Z68.43 Body mass index [BMI] 50.0-59.9, adult; E11.8 Type 2 diabetes mellitus with unspecified complications; I50.9 Heart failure, unspecified; I11.0 Hypertensive heart disease with heart failure; J44.9 Chronic obstructive pulmonary disease, unspecified; K21.9 Gastro-esophageal reflux disease without esophagitis; I87.2 Venous insufficiency (chronic) (peripheral); F17.210 Nicotine dependence, cigarettes, uncomplicated; E66.01 Morbid (severe) obesity due to excess calories; Z91.19 Patient's noncompliance with other medical treatment and regimen; Z71.6 Tobacco abuse counseling
CPT/HCPCS: 36415; 71045; 80048; 80053; 80061; 81001; 82550; 82553; 82962; 83036; 83735; 83880; 84439; 84443; 84481; 84484; 85025; 85027; 93005; 93010; 94060; 96374; 99291; J1160; J1650; J1815; J3490

== ENCOUNTER 2020-07-07 14:22 | Emergency (ER) | payer MEDICARE, MEDICAID ==
[2020-07-07] MEDS ORDERED: NORMAL SALINE 1000 ML 1,000 ML IV ONE (14:58)
--- NOTE | 2020-07-07 15:01 | ER Document Report ---
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 He states it is about a 50 foot from his truck to the office and when he got that there was nobody there so he waited about 2030 minutes and then went the 50 feet back to his truck and during that time he got exhausted due to the heat. Is alert oriented respirations regular nonlabored speaking in full sentences. He states he has a past medical history of A. fib, COPD, diabetes, peripheral vascular disease. He also smokes a pack a day. Will order labs and IV fluids and have him seen by another provider. I have greeted and performed a rapid initial assessment of this patient. A comprehensive ED assessment and evaluation of the patient, analysis of test results and completion of medical decision making process will be conducted by an additional ED providers. TRAVEL OUTSIDE OF THE [place] IN LAST 30 DAYS: No - Related Data Allergies/Adverse Reactions: No Known Allergies Allergy (Verified 06/28/13 17:52) Past Medical History - Social History Frequency of alcohol use: Rare Drug Abuse: None - Past Medical History Cardiac Medical History: Reports: Hx Congestive Heart Failure, Hx Hypertension Denies: Hx Heart Attack Pulmonary Medical History: Reports: Hx COPD Endocrine Medical History: Reports: Hx Diabetes Mellitus Type 2. Denies: Hx Hypothyroidism Renal/ Medical History: Denies: Hx Peritoneal Dialysis GI Medical History: Reports: Hx Gastroesophageal Reflux Disease Musculoskeltal Medical History: Denies Hx Arthritis, Denies Hx Fibromyalgia Past Surgical History: Reports: Hx Tonsillectomy, Other - Hydrocele and gastric polyp - Immunizations Hx Diphtheria, Pertussis, Tetanus Vaccination: No Physical Exam - Vital signs Vitals: Temp Pulse Resp BP Pulse Ox 98.9 F 110 H 18 147/79 H 99 07/07/20 14:07/07/20 14:07/07/20 14:07/07/20 14:07/07/20 14:29 Course - Vital Signs Vital signs: Temp Pulse Resp BP Pulse Ox 98.9 F 110 H 18 147/79 H 99 07/07/20 14:07/07/20 14:07/07/20 14:29 07/07/20 14:29 07/07/20 14:29
[2020-07-07 15:56] LABS: ABSOLUTE EOSINOPHILS # (AUTO) 0.2 10^3/uL (0.0-0.6); ABSOLUTE LYMPHOCYTES (AUTO) 1.9 10^3/uL (0.5-4.7); ABSOLUTE MONOCYTES (AUTO) 0.8 10^3/uL (0.1-1.4); ABSOLUTE NEUT (AUTO) 8.3 10^3/uL (1.7-8.2); BASOPHILS % (AUTO) 0.4 % (0-2); EOSINOPHILS % (AUTO) 1.5 % (0-6); HEMATOCRIT 47.1 % (37.9-51.0); HEMOGLOBIN 16.1 g/dL (13.5-17.0); LYMPHOCYTES % (AUTO) 16.8 % (13-45); MEAN CORPUSCULAR HEMOGLOBIN 29.3 pg (27.0-33.4); MEAN CORPUSCULAR HGB CONC 34.2 g/dL (32.0-36.0); MEAN CORPUSCULAR VOLUME 86 fl (80-97); MONOCYTES % (AUTO) 6.8 % (3-13); PLATELET COUNT 333 10^3/uL (150-450); RED BLOOD COUNT 5.48 10^6/uL (4.35-5.55); RED CELL DISTRIBUTION WIDTH 15.5 % (11.5-14.0); SEGMENTED NEUTROPHILS % (AUTO) 74.5 % (42-78); TOTAL CELLS COUNTED % (AUTO) 100 %; WHITE BLOOD COUNT 11.1 10^3/uL (4.0-10.5)
[2020-07-07 16:11] LABS: ALBUMIN 3.9 g/dL (3.5-5.0); ALKALINE PHOSPHATASE 126 U/L (38-126); ANION GAP 6 (5-19); ASPARTATE AMINO TRANSFERASE 12 U/L (17-59); BILIRUBIN,DIRECT 0.4 mg/dL (0.0-0.4); BILIRUBIN,TOTAL 0.5 mg/dL (0.2-1.3); BLOOD UREA NITROGEN 15 mg/dL (7-20); CALCIUM 9.9 mg/dL (8.4-10.2); CARBON DIOXIDE 30 mmol/L (22-30); CHLORIDE 100 mmol/L (98-107); CREATINE KINASE 40 U/L (55-170); GLUCOSE 216 mg/dL (75-110); PHOSPHORUS 3.6 mg/dL (2.5-4.5); POTASSIUM 4.9 mmol/L (3.6-5.0); TOTAL PROTEIN 7.3 g/dL (6.3-8.2)
--- NOTE | 2020-07-07 17:04 | EKG REPORT ---
SEVERITY:- ABNORMAL ECG - SINUS TACHYCARDIA RBBB AND LPFB : Confirmed by: Georgia Diane MD 07-Jul-2020 17:04:30
--- NOTE | 2020-07-07 17:06 | ER Document Report ---
ED General - General Chief Complaint: Heat Exposure Stated Complaint: HEAT EXPOSURE Time Seen by Provider: 07/07/20 14:54 Mode of Arrival: Medic TRAVEL OUTSIDE OF THE [place] IN LAST 30 DAYS: No - HPI Notes: Chief complaint: Heat exhaustion History of present illness: 60-year-old male with longstanding history of hypertension, congestive heart failure, atrial fibrillation and COPD presented via EMS after calling them for "heat exhaustion". 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 He walked for some distance in the heat and then found that the individual had left unlocked the door. He stood outside the door in the heat for some extended period of time. He became frustrated and decided to walk back to his vehicle. When he got back to his vehicle he said he felt extremely overheated and was having difficulty breathing. He denies any chest pain. He denies any presyncope or syncope. EMS arrived and transported him here. They administered IV fluids during transport. His symptoms are now totally resolved and he wants to leave. - Related Data Allergies/Adverse Reactions: No Known Allergies Allergy (Verified 06/28/13 17:52) Past Medical History - General Information source: Patient - Social History Smoking Status: Current Every Day Smoker Frequency of alcohol use: Rare Drug Abuse: None Family History: CAD, DM, Malignancy, Other - Congestive heart failure, dementia - Past Medical History Cardiac Medical History: Reports: Hx Congestive Heart Failure, Hx Hypertension Denies: Hx Heart Attack Pulmonary Medical History: Reports: Hx COPD Endocrine Medical History: Reports: Hx Diabetes Mellitus Type 2. Denies: Hx Hypothyroidism Renal/ Medical History: Denies: Hx Peritoneal Dialysis GI Medical History: Reports: Hx Gastroesophageal Reflux Disease Musculoskeletal Medical History: Denies Hx Arthritis, Denies Hx Fibromyalgia Past Surgical History: Reports: Hx Tonsillectomy, Other - Hydrocele and gastric polyp - Immunizations Hx Diphtheria, Pertussis, Tetanus Vaccination: No Review of Systems - Review of Systems Notes: Constitutional: Negative for fever. HENT: Negative for sore throat. Eyes: Negative for visual changes. Cardiovascular: Negative for chest pain. Respiratory: As per HPI. Gastrointestinal: Negative for abdominal pain, vomiting or diarrhea. Genitourinary: Negative for dysuria. Musculoskeletal: Negative for back pain. Skin: Negative for rash. Neurological: Negative for headaches, focal weakness or numbness. 10 point ROS negative except as marked above and in HPI. Physical Exam - Vital signs Vitals: Temp Pulse Resp BP Pulse Ox 98.9 F 110 H 18 147/79 H 99 07/07/20 14:29 07/07/20 14:29 07/07/20 14:29 07/07/20 14:29 07/07/20 14:29 - Notes Notes: GENERAL: Morbidly obese male of approximately stated age appearing in no acute distress. SKIN: Good turgor no rashes. HEAD: Normocephalic atraumatic. EYES: PERRLA. EOMI. Conjunctivae and sclerae clear. EARS: CANALS AND TMS CLEAR. NOSE: CLEAR. MOUTH: Moist mucosa. Good dentition. No stridor or edema. No drooling. NECK: Supple. No masses or thyromegaly. No adenopathy. Carotids 2+ without bruits. No JVD. BACK: Symmetrical without tenderness. CHEST: Respirations unlabored. Breath sounds clear and symmetrical. HEART: Regular rhythm. No murmur gallop or rub. ABDOMEN: Obese soft nontender without masses, organomegaly or rebound. Bowel sounds normally active. No bruits. GENITALIA: Deferred. EXTREMITIES: 2+ brawny edema pretibial area bilaterally. No calf tenderness. Cap refill less than 1.5 seconds. Dorsalis pedis and posterior tibial pulses 3+ and symmetrical. NEUROLOGICAL: GCS 15. Alert and oriented x3. Fluent speech. Cranial nerves II through XII intact. Sensorimotor and cerebellar normal. Normal tone. PSYCHIATRIC: Appropriate affect. Course - Re-evaluation Re-evalutation: 07/07/20 19:04 Still on her normal troponin and his EKG is unchanged from baseline. CK is not elevated. No new findings on chest x-ray. He declined additional IV fluids here but took p.o. fluids without any difficulty. His urinalysis is unremarkable. He plans to follow-up with his primary care physician within the next 24 hours and has been instructed to remain out of the heat and increase o ral fluids. Findings, clinical impression and plan of treatment have been discussed with patient/family. Understanding of current findings and recommendations has been acknowledged by them and there is agreement regarding disposition and follow-up. - Vital Signs Vital signs: Temp Pulse Resp BP Pulse Ox 98.9 F 110 H 18 147/79 H 99 07/07/20 14:29 07/07/20 14:29 07/07/20 14:29 07/07/20 14:29 07/07/20 14:29 - Laboratory Result Diagrams: 07/07/20 15:30 07/07/20 15:30 Laboratory results interpreted by me: 07/07/20 07/07/20 15:30 15:30 WBC 11.1 H RDW 15.5 H Absolute Neuts (auto) 8.3 H Sodium 136.4 L Glucose 216 H AST 12 L Creatine Kinase 40 L - EKG Interpretation by Me Additional EKG results interpreted by me: 07/07/20 17:06 Twelve-lead EKG from 1656 hrs. reviewed contemporaneously by me showing a sinus tachycardia with a right bundle branch block and left posterior fascicular block. Overall appearance of the tracing is similar to prior study from 05/24/2019. Specifically there are no acute ST/T wave changes noted today. Impression sinus tachycardia. Indication for current study: Dyspnea. Discharge - Discharge Clinical Impression: Heat exhaustion Qualifiers: Encounter type: initial encounter Qualified Code(s): T67.5XXA - Heat exhaustion, unspecified, initial encounter Condition: Stable Disposition: HOME, SELF-CARE Additional Instructions: Heat Exhaustion You have had an episode of heat exhaustion. The body overheats when sweating fails to keep the temperature down due to high humidity, exercise, or dehydration. Typical symptoms may include muscle cramps, dizziness, nausea, and even chilling. You should rest and drink plenty of fluids. Do not resume any activities until you feel fully back to normal. To prevent a recurrence, avoid working in the heat. Always drink plenty of fluids when the weather is hot, particularly if you will be exercising. Use extra caution when the humidity is high. If you feel symptoms of heat illness, douse yourself with cold water and rest in the shade. Call the doctor if you develop confusion, repeated vomiting, severe headache, severe muscle spasms, fever, chest pain or shortness of breath. Return here as needed for new or worsening symptoms. Follow-up with your primary care physician this week.
--- NOTE | 2020-07-07 18:17 | RADIOLOGY REPORT (SQ) ---
EXAM DESCRIPTION: CHEST 2 VIEWS IMAGES COMPLETED DATE/TIME: 07/07/2020 5:51 pm REASON FOR STUDY: dyspnea COMPARISON: 05/24/2019 EXAM PARAMETERS: NUMBER OF VIEWS: two views TECHNIQUE: Digital Frontal and Lateral radiographic views of the chest acquired. RADIATION DOSE: NA LIMITATIONS: none FINDINGS: LUNGS AND PLEURA: No opacities, masses or pneumothorax. No pleural effusion. MEDIASTINUM AND HILAR STRUCTURES: No masses or contour abnormalities. HEART AND VASCULAR STRUCTURES: Heart normal size. No evidence for failure. BONES: No acute findings. HARDWARE: None in the chest. OTHER: No other significant finding. IMPRESSION: 1. NO ACUTE RADIOGRAPHIC FINDING IN THE CHEST. TECHNICAL DOCUMENTATION: JOB ID: [id number] 2010 [employer]- All Rights Reserved Reading location - IP/workstation name: [email or web address]
[2020-07-07 18:53] LABS: APPEARANCE,URINE SLIGHTLY-CLOUDY; BILIRUBIN,URINE NEGATIVE (NEGATIVE); COLOR,URINE YELLOW; GLUCOSE, URINE NEGATIVE (NEGATIVE); KETONES,URINE NEGATIVE (NEGATIVE); LEUKOCYTE ESTERASE,URINE NEGATIVE (NEGATIVE); NITRITE,URINE NEGATIVE (NEGATIVE); PROTEIN,URINE NEGATIVE (NEGATIVE); URINE SPECIFIC GRAVITY 1.011; UROBILINOGEN,URINE NEGATIVE mg/dL (<2.0)
[2020-07-07 23:02] VITALS: BP 140/78
== END 2020-07-07 23:02 | disposition home or self-care (01) ==
LOC: ER 14:22
DX: T67.5XXA Heat exhaustion, unspecified, initial encounter (principal); X30.XXXA Exposure to excessive natural heat, initial encounter; Y93.89 Activity, other specified; F17.200 Nicotine dependence, unspecified, uncomplicated; I10 Essential (primary) hypertension; J44.9 Chronic obstructive pulmonary disease, unspecified; E11.9 Type 2 diabetes mellitus without complications; E66.01 Morbid (severe) obesity due to excess calories; R60.0 Localized edema; I45.2 Bifascicular block; R00.0 Tachycardia, unspecified
CPT/HCPCS: 36415; 71046; 80053; 81001; 82550; 83690; 83735; 84100; 84484; 85025; 93005; 93010; 99285